=== PATIENT | female | born 1985 | race Caucasian/White ===

== ENCOUNTER 2023-09-21 13:31 | Inpatient (IN) | payer OTHER, MEDICARE ==
[2023-09-21] MEDS ORDERED: Albuterol 6.7 GM Inhaler INH PRN (15:10)
[2023-09-21] MEDS ORDERED: diphenhydrAMINE 25 MG Cap PO PRN (15:13)
[2023-09-21] MEDS ORDERED: Acetaminophen 325 MG Tab PO SCH (15:15)
[2023-09-21] MEDS ORDERED: Melatonin 3 MG Tab PO PRN (15:15)
[2023-09-21] MEDS ORDERED: Naloxone 2 MG/2 ML Syringe IV PRN (15:19)
[2023-09-21] MEDS ORDERED: Ondansetron 4 MG Tab.DIS PO PRN (15:21)
[2023-09-21] MEDS ORDERED: Polyethylene Glycol 3350 Powder 17 GM Packet PO PRN (15:22)
[2023-09-21] MEDS: Ibuprofen 400 MG Tab PO ONE (17:17)
[2023-09-21] MEDS: Prochlorperazine 10 MG Tab PO ONE (17:17)
[2023-09-21] MEDS: Acetaminophen 325 MG Tab PO SCH (17:18)
[2023-09-21 17:54] LABS: APPEARANCE,URINE CLEAR (CLEAR); BILIRUBIN,URINE SMALL (NEGATIVE); COLOR,URINE YELLOW; GLUCOSE,URINE NEGATIVE (NEGATIVE); KETONES,URINE NEGATIVE (NEGATIVE); LEUKOCYTE ESTERASE,URINE NEGATIVE (NEGATIVE); NITRITE,URINE NEGATIVE (NEGATIVE); OCCULT BLOOD,URINE NEGATIVE (NEGATIVE); PH,URINE 5.5 (5.0-8.0); PROTEIN,URINE NEGATIVE (NEGATIVE)
[2023-09-21] MEDS: Docusate Sodium 100 MG Cap PO SCH (19:07)
[2023-09-21] MEDS: Mupirocin Oint 22 GM Tube TOP SCH (19:10)
[2023-09-21] MEDS: Enoxaparin 40 MG/0.4 ML Syringe SUBCUT SCH (19:11)
[2023-09-22] MEDS: oxyCODONE 5 MG Tab PO PRN (04:11)
[2023-09-22] MEDS: Magnesium Oxide 400 MG Tab PO SCH (08:19)
[2023-09-22] MEDS: buPROPion 300 MG Tab.ER PO SCH (08:20)
[2023-09-22] MEDS: Sertraline 25 MG Tab PO SCH (08:20)
[2023-09-22] MEDS: Scopalamine 1mg/3day Transdermal Patch TOP SCH (09:25)
[2023-09-22] MEDS: Scopolamine 1 MG Transdermal Patch TD SCH (10:25)
[2023-09-23] MEDS: Scopalamine 1mg/3day Transdermal Patch TOP SCH (02:18)
== END 2023-10-06 11:18 | disposition home or self-care (01) | DRG 561 ==
LOC: LB.MS 13:31 → EEVIPCON 13:31
PROVIDERS: ADMIT Registered Nurse; ATTEND Registered Nurse
DX: S32.592D Other specified fracture of left pubis, subsequent encounter for fracture with routine healing (principal); S22.009D Unspecified fracture of unspecified thoracic vertebra, subsequent encounter for fracture with routine healing; S32.009D Unspecified fracture of unspecified lumbar vertebra, subsequent encounter for fracture with routine healing; S32.10XD Unspecified fracture of sacrum, subsequent encounter for fracture with routine healing; S02.42 Fracture of alveolus of maxilla; S02.2XXD Fracture of nasal bones, subsequent encounter for fracture with routine healing; S01.112D Laceration without foreign body of left eyelid and periocular area, subsequent encounter; S80.02XD Contusion of left knee, subsequent encounter; S80.01XD Contusion of right knee, subsequent encounter; S00.03XD Contusion of scalp, subsequent encounter; G47.33 Obstructive sleep apnea (adult) (pediatric); F41.1 Generalized anxiety disorder; K59.00 Constipation, unspecified; F32.A Depression, unspecified; J45.909 Unspecified asthma, uncomplicated; G47.30 Sleep apnea, unspecified; Z97.3 Presence of spectacles and contact lenses; Z88.1 Allergy status to other antibiotic agents; Z91.018 Allergy to other foods; V29.99XD Rider (driver) (passenger) of other motorcycle injured in unspecified traffic accident, subsequent encounter
CPT/HCPCS: 72190; 81003; 97110-GP; 97116-GP; 97162-GP; 97165-GO; 97530-GO; 97530-GP; 97535-GO; 99305; 99309; 99315; A9270-GY; J1650; Q0164